=== PATIENT | male | born 1985 | race Caucasian/White ===

== ENCOUNTER 2022-02-09 08:51 | Day surgery (SDC) | payer OTHER ==
[~2022-02-09] VITALS: Ht 180.3 cm; Wt 79.1 kg
[~2022-02-09 08:51] MED LIST: BUPR150ER PO; Carvedilol12.5 MG PO; DIVA500ER PO; Inderal40 MG PO; LISI5 PO; MELA3 PO; MIRT30 PO; PRAZ5 PO; QUET200 PO; [UNRECOGNIZED DRUG - OTHER] PO
--- NOTE | 2022-02-09 12:58 | NUR ---
Patient up to Ambulate independently. Gait steady. STAND BY ASSIST. Discharge instructions reviewed with patient. Patient verbalizes understanding. Copy given to patient to take home INCLUDING FALL PREVENTION BROCHURE AND PAIN PRESCRIPTION. Discharge instructions reviewed with patient. Patient verbalizes understanding. Copy given to patient to take home WITH FRIEND
== END 2022-02-09 12:54 | disposition home or self-care (01) ==
LOC: ORSCMMR 08:51 → ORD 10:00 → ORSCMMR 10:00
PROVIDERS: Surgery
PROC: 0D9Q7ZZ Drainage of Anus, Via Natural or Artificial Opening (ICD-10-PCS; principal; 2022-02-09 10:00)
DX: K60.3 Anal fistula (principal); Z21 Asymptomatic human immunodeficiency virus [HIV] infection status; I10 Essential (primary) hypertension; G40.909 Epilepsy, unspecified, not intractable, without status epilepticus; I42.9 Cardiomyopathy, unspecified; F43.10 Post-traumatic stress disorder, unspecified; Z79.899 Other long term (current) drug therapy; F17.290 Nicotine dependence, other tobacco product, uncomplicated
CPT/HCPCS: J0295; J1100; J1885; J2001; J2250; J2310; J2405; J2704; J3010; J7120

== ENCOUNTER 2022-11-28 02:05 | Emergency (ER) | payer OTHER ==
[~2022-11-28] VITALS: Ht 182.9 cm; Wt 86.2 kg
[2022-11-28 02:16] VITALS: BP 131/90
[2022-11-28 03:27] LABS: Bun/Creatinine Ratio 12.7 (12.0-20.0); Calcium, Blood 8.6 mg/dL (8.5-10.1); Creatinine, Blood 1.26 mg/dL (0.60-1.20); Potassium, Blood 3.4 mmol/L (3.5-5.5)
== END 2022-11-28 06:35 | disposition home or self-care (01) ==
LOC: ER 02:05
PROVIDERS: Student in an Organized Health Care Education/Training Program
DX: R41.0 Disorientation, unspecified (principal); R20.0 Anesthesia of skin; R25.1 Tremor, unspecified; N32.89 Other specified disorders of bladder; R51.9 Headache, unspecified; Z79.899 Other long term (current) drug therapy; F43.10 Post-traumatic stress disorder, unspecified
CPT/HCPCS: 70250; 70450; 71045; 74018; 80048; 93005; 93010; 99285-25

== ENCOUNTER 2024-12-26 21:02 | Emergency (ER) | payer OTHER ==
[~2024-12-26] VITALS: Ht 180.3 cm; Wt 68.0 kg
[2024-12-26 22:35] VITALS: BP 138/102
[2024-12-26 22:45] LABS: BASOPHILS ABSOLUTE AUTO 0.04 K/mm3 (0.00-0.23); BASOPHILS PERCENT AUTO 1 % (0-2); EOSINOPHILS ABSOLUTE AUTO 0.11 K/mm3 (0.00-0.68); EOSINOPHILS PERCENT AUTO 2 % (0-6); Hematocrit 42.6 % (37.0-53.0); Hemoglobin 15.4 g/dL (13.5-17.5); IMMATURE GRAN ABSOLUTE AUTO 0.02 K/mm3 (0.00-0.10); IMMATURE GRAN PERCENT AUTO 0 % (0-1); LYMPHOCYTES ABSOLUTE AUTO 1.90 K/mm3 (0.84-5.20); LYMPHOCYTES PERCENT AUTO 29 % (21-46); MONOCYTES ABSOLUTE AUTO 0.99 K/mm3 (0.16-1.47); MONOCYTES PERCENT AUTO 15 % (4-13); Mean Corpuscular HGB Conc 36.2 g/dL (31.5-36.5); Mean Corpuscular Volume 86 fL (80-100); NEUTROPHILS ABSOLUTE AUTO 3.56 K/mm3 (1.96-9.15); NEUTROPHILS PERCENT AUTO 54 % (41-73); NRBC ABSOLUTE 0.00 K/mm3 (0.00-0.02); NRBC Auto 0.0 /100 WBC (0.0-0.2); Platelet Count 197 K/mm3 (150-400); RDW Coefficient Variation 11.6 % (11.7-14.2); RDW Standard Deviation 36.8 fL (35.1-46.3)
[2024-12-26 23:07] LABS: Alanine Aminotransfer (ALT/SGP 40.0 U/L (12-78); Albumin, Blood 3.6 g/dL (3.4-5.0); Albumin/Globulin Ratio 1.2 (0.8-1.8); Anion Gap 4.0 mmol/L (3-11); Aspartate Aminotrans (AST/SGOT 32.0 U/L (12-37); Bilirubin, Total 0.3 mg/dL (0.1-1.0); Blood Urea Nitrogen 12.0 mg/dL (8-24); CO2, Blood 30.0 mmol/L (21-32); Calcium, Blood 8.6 mg/dL (8.5-10.1); Chloride, Blood 102.0 mmol/L (98-108); Creatinine, Blood 0.98 mg/dL (0.60-1.20); Globulin, Blood 3.1 g/dL (2.2-4.0); Glucose, Blood 93.0 mg/dL (70-99); Magnesium, Blood 2.0 mg/dL (1.6-2.4); Phosphorus, Blood 3.2 mg/dL (2.5-4.9); Potassium, Blood 4.1 mmol/L (3.5-5.5); Sodium, Blood 132.0 mmol/L (136-145); Total Protein, Blood 6.7 g/dL (6.4-8.2)
[2024-12-27] MEDS ORDERED: ONDA4ODT MM (00:32)
[2024-12-27] MEDS ORDERED: RX Prepack 2 Tabs Ondansetron ODT 4MG UD ONE (00:35)
[2024-12-27 01:38] LABS: Campylobacter Sp Not Detected (NOT DETECT); E. Coli O157 Not Detected (NOT DETECT); Enteroaggregative E. coli-EAEC Not Detected (NOT DETECT); Enteropathogenic E. coli-EPEC Not Detected (NOT DETECT); Enterotoxigenic E. coli-ETEC Not Detected (NOT DETECT); Salmonella Sp Not Detected (NOT DETECT); Shiga Toxin-prod E. coli-STEC Not Detected (NOT DETECT); Shigella/Enteroin E. coli-EIEC Not Detected (NOT DETECT); Vibrio Sp Not Detected (NOT DETECT)
== END 2024-12-27 00:48 | disposition home or self-care (01) ==
LOC: ER 21:02
PROVIDERS: Student in an Organized Health Care Education/Training Program
DX: R19.7 Diarrhea, unspecified (principal); F43.10 Post-traumatic stress disorder, unspecified; Z79.899 Other long term (current) drug therapy
CPT/HCPCS: 80053; 83735; 84100; 85025; 87507; 99283; A9270